=== PATIENT | female | born 1950 | race Caucasian/White ===

== ENCOUNTER → 2023-05-01 | Outpatient (CLI) | payer MEDICARE | END | disposition home or self-care (01) | LOC: RAH 13:10 | PROVIDERS: ATTEND Internal Medicine | DX: Z12.31 Encounter for screening mammogram for malignant neoplasm of breast (principal) | CPT/HCPCS: 77067 ==

== ENCOUNTER → 2024-05-03 | Outpatient (CLI) | payer MEDICARE ==
--- NOTE | 2024-05-04 09:37 | HMCIMG ---
MAMMO SCREENING BILATERAL HISTORY: Screening mammogram. COMPARISON: 05/01/2023 TECHNIQUE: Bilateral screening mammogram with CAD was performed with craniocaudal and mediolateral oblique projections. FINDINGS: The breasts are heterogeneous dense, which may obscure small masses. There is no evidence of a dominant mass, or suspicious microcalcification. There is no evidence of nipple retraction or skin thickening. IMPRESSION: 1. Stable mammogram. Patient was entered into a reminder system with a target due date for their next mammogram. BI-RADS: CATEGORY 2: BENIGN FINDINGS Recommend monthly self breast exam as well as annual clinical examination. A negative x-ray should not delay biopsy if a dominant or clinically suspicious mass is present, since 8-10% of cancers are not identified by mammography. Dense breasts particularly, may obscure an underlying neoplasm. Some of these may be detected clinically and therefore, clinical examination is an essential part of breast evaluation.
== END | disposition home or self-care (01) ==
LOC: RAH 11:38
PROVIDERS: ATTEND Internal Medicine
DX: Z12.31 Encounter for screening mammogram for malignant neoplasm of breast (principal); R92.333 Mammographic heterogeneous density, bilateral breasts
CPT/HCPCS: 77067

== ENCOUNTER → 2025-05-02 | Outpatient (CLI) | payer MEDICARE ==
--- NOTE | 2025-05-03 06:11 | HMCIMG ---
EXAMINATION: ULTRASOUND OF THE THYROID. CLINICAL HISTORY: Hypothyroidism. COMPARISON: None. TECHNIQUE: Transverse and longitudinal images were obtained through both lobes and the isthmus of the thyroid. FINDINGS: The thyroid gland is normal in caliber with heterogenous tissue echotexture. The right thyroid lobe measures 2.4 x 1.1 x 0.7 cm and the left thyroid lobe measures 2.4 x 0.9 x 0.7 cm in the craniocaudal, AP, and transverse dimensions respectively. The isthmus measures 0.2 cm in AP dimension. Right lobe: There are no focal lesions. Left lobe: There are no focal lesions. No significantly enlarged lymph nodes. IMPRESSION: Heterogenous tissue echotexture of both the lobes of the thyroid, of concern for thyroiditis. /[place]
== END | disposition home or self-care (01) ==
LOC: RAH 12:25
PROVIDERS: ATTEND Internal Medicine
DX: E06.9 Thyroiditis, unspecified (principal); E03.9 Hypothyroidism, unspecified
CPT/HCPCS: 76536

== ENCOUNTER → 2025-05-18 | Outpatient (CLI) | payer MEDICARE ==
--- NOTE | 2025-05-22 09:35 | HMCIMG ---
BILATERAL BREAST ULTRASOUND: CLINICAL HISTORY: Finding: Real-time examination of the both breasts demonstrates heterogeneous echotexture throughout both the breasts. The left breast at 10:00 there is a hypoechoic lesion measuring 0.6 x 0.4 x 0.8 cm. There is benign appearing axillary lymph node on the right it measures 0.9 x 0.6 x 0.8 cm. On the left the largest measuring 2.2 x 0.7 x 2.10 cm. The remaining left breast and right breast has no other lesion seen. IMPRESSION: Left breast at 12:00 there is a hypoechoic lesion measuring 0.6 x 0.4 x 0.8 cm. I would recommend ultrasound-guided biopsy for further evaluation. FINAL ASSESSMENT: ACR: BI-RAD -4. Suspicious Finding.
--- NOTE | 2025-05-22 09:45 | HMCIMG ---
DIGITAL BILATERAL SCREENING MAMMOGRAM WITH TOMOSYNTHESIS Technique: The digital mammographic examination of both breasts in craniocaudal and mediolateral oblique views along with CAD was obtained. Tomosynthesis of both breasts was obtained. Ultrasound of both breasts were also obtained. History: This is a 75 years year-old female 2, para 2 Ab 0 for 3D screening mammogram. Patient has no family history of breast cancer. Patient has no complaint Reference:Prior mammogram from 05/03/2024, 05/01/2023, 01/01/2022, 12/14/2020 and 12/13/2019 are available for comparison.. Breast composition: Breast composition C: The breasts are heterogeneously dense, which may obscure small masses. Finding: The digital mammographic examination of both breasts in craniocaudal and mediolateral oblique view along with CAD demonstrates both breasts to be moderately heterogeneously dense due to fibroglandular stromal elements.. Ultrasound demonstrate a left breast lesion at 12:00 which is not seen on the mammography and tomography. There is no evidence of any dendritic mass, cluster microcalcification or architectural distortion. The Tomosynthesis demonstrates no other lesion seen. The retromammary fat appears to be normal. IMPRESSION: Left breast at 12:00 there is a lesion seen only on ultrasound was not seen in the mammogram with tomography. I would recommend ultrasound-guided biopsy for further evaluation.. FINAL ASSESSMENT: ACR: BI-RAD -4. Suspicious Finding. NOTE: IF A WORK-UP OF THIS PATIENT LEADS TO A BIOPSY, PLEASE FORWARD A COPY OF THE PATHOLOGY REPORT TO OUR OFFICE REQUIRED BY [facility] EFFECTIVE MARCH 29, 1994. A NEGATIVE MAMMOGRAM SHOULD NOT PRECLUDE BIOPSY OF A CLINICALLY PALPABLE SUSPICIOUS MASS, 10% OF BREAST CANCERS ARE MAMMOGRAPHICALLY OCCULT. THIS MAMMOGRAPHY FACILITY IS FULLY ACCREDITED BY THE FOOD AND DRUG [employer]MINISTRATION (FDA). THANK YOU FOR THIS REFERRAL.
== END ==
LOC: RAH 14:20
PROVIDERS: ATTEND Internal Medicine
DX: Z12.31 Encounter for screening mammogram for malignant neoplasm of breast (principal); R92.30 Dense breasts, unspecified; R92.333 Mammographic heterogeneous density, bilateral breasts; N63.25 Unspecified lump in the left breast, overlapping quadrants
CPT/HCPCS: 77063; 77067